=== PATIENT | female | born 1955 | race African-American/Black ===

== ENCOUNTER 2018-09-01 04:08 | Emergency (ER) | payer OTHER ==
[~2018-09-01] VITALS: Ht 170.2 cm; Wt 54.4 kg
[2018-09-01 04:08] VITALS: BP 98/46; TEMP 98.1
[2018-09-01] MEDS ORDERED: LUBI24CA PO ×2 (04:16→04:43)
[2018-09-01] MEDS ORDERED: OXYB5TAB56 PO (04:17)
[2018-09-01] MEDS ORDERED: DECUBI-VITE PO (04:17)
[2018-09-01] MEDS ORDERED: ELIQUIS5 MG PO (04:18)
[2018-09-01] MEDS ORDERED: ARNUITY EL50 MCG/ACT INH (04:19)
[2018-09-01] MEDS ORDERED: HYOSCYAMINE0.125 M2 PO (04:19)
[2018-09-01] MEDS ORDERED: IPRATROPIUM/ INH (04:21)
[2018-09-01] MEDS ORDERED: MELATONIN3 M1 PO (04:22)
[2018-09-01] MEDS ORDERED: MONTELUKAST SOD10 MG PO (04:24)
[2018-09-01] MEDS ORDERED: METOCLOPRAM5 MG PO (04:24)
[2018-09-01] MEDS ORDERED: ONDA2INJ2 PO (04:25)
[2018-09-01] MEDS ORDERED: OXYCODONE30 MG PO (04:25)
[2018-09-01] MEDS ORDERED: PROTONIX20 MG PO (04:26)
[2018-09-01] MEDS ORDERED: POLY GLYCOL3350 M1 PO (04:27)
[2018-09-01] MEDS ORDERED: QVAR REDIH80 MCG/ACT INH (04:27)
[2018-09-01] MEDS ORDERED: SPIRIVA RE2.5 MCG/AC INH (04:28)
[2018-09-01] MEDS ORDERED: THEOPHYLLINE C300 MG PO (04:29)
[2018-09-01] MEDS ORDERED: DIAZ2TAB PO (04:30)
[2018-09-01] MEDS ORDERED: ZYPREXA ZYDI5 MG PO (04:42)
[2018-09-01] MEDS ORDERED: AFRIN NASAL SP0.05 % INH (04:43)
[2018-09-01 05:23] LABS: PLATELET COUNT 259 K/uL (152-353)
[2018-09-01 05:29] LABS: POTASSIUM 3.7 mmol/L (3.6-5.2)
[2018-09-01] MEDS ORDERED: ONDANSETRON4 M2 PO (09:57)
[2018-09-02] MEDS ORDERED: AFRIN NASAL SP0.05 % INH (10:38)
[2018-09-02] MEDS ORDERED: ONDA2INJ2 PO (10:38)
[2018-09-02] MEDS ORDERED: HYOSCYAMINE0.125 M2 PO (10:38)
[2018-09-02] MEDS ORDERED: LUBI24CA PO (10:38)
[2018-09-02] MEDS ORDERED: METOCLOPRAM5 MG PO (10:38)
== END 2018-09-01 06:40 | disposition other institution (70) ==
LOC: ED 04:08
PROVIDERS: Internal Medicine
DX: F31.89 Other bipolar disorder (principal); F22 Delusional disorders; J44.9 Chronic obstructive pulmonary disease, unspecified; I26.99 Other pulmonary embolism without acute cor pulmonale; S21.202A Unspecified open wound of left back wall of thorax without penetration into thoracic cavity, initial encounter; S21.201A Unspecified open wound of right back wall of thorax without penetration into thoracic cavity, initial encounter; S31.000A Unspecified open wound of lower back and pelvis without penetration into retroperitoneum, initial encounter; Z04.6 Encounter for general psychiatric examination, requested by authority
CPT/HCPCS: 36415; 80053; 81000; 85027; 93005; 99285